=== PATIENT | male | born 1950 | race Caucasian/White ===

== ENCOUNTER 2022-11-01 08:57 | Outpatient (CLI) | payer MEDICARE, SELFPAY ==
[2022-11-01 12:13] LABS: Basophils Absolute Auto 0.1 K/mm3 (0.0-0.1); Eosinophils Absolute Auto 0.2 K/mm3 (0-0.3); Eosinophils Percent Auto 3.4 % (0-4.4); Hemoglobin 13.9 g/dL (14.0-18.0); Immature Granulocyte Absolute 0.01 K/mm3 (0.00-0.031); Immature Granulocyte Percent A 0.2 % (0-0.5); Lymphocytes Absolute Auto 2.11 K/mm3 (0.9-3.2); Lymphocytes Percent Auto 42.1 % (18.3-44.2); Mean Corpuscular HGB Conc 31.6 g/dl (32-36); Mean Corpuscular Hemoglobin 28.2 pg (26-34); Mean Corpuscular Volume 89.2 fl (80-100); Mean Platelet Volume 11.8 fl (7.4-10.4); Monocytes Absolute Auto 0.4 K/mm3 (0.1-0.6); Monocytes Percent Auto 8.2 % (2.6-8.5); Neutrophils Absolute Auto 2.3 K/mm3 (1.3-6.7); Neutrophils Percent Auto 45.1 % (45.5-73.1); Platelet Count Result 300 k/mm3 (150-375); Red Blood Count 4.93 M/mm3 (4.6-6.20); Red Cell Distribution Width 13.9 % (11.5-14.5)
[2022-11-01 13:16] LABS: Alanine Aminotransferase 32 U/L (6-50); Albumin Level 4.8 g/dL (3.5-5.1); Alkaline Phosphatase 67 U/L (38-126); Anion Gap 13 mmol/L (8-16); Aspartate Amino Transferase 34 U/L (17-59); Bilirubin,Total 0.5 mg/dL (0.2-1.3); Blood Urea Nitrogen 18 mg/dL (9-20); Calcium 9.7 mg/dL (8.4-10.2); Carbon Dioxide 24 mmol/L (22-30); Chloride 101 mmol/L (98-107); Cholesterol 146 mg/dL (0-200); Estimated Glomerular Filt Rate > 60; Glucose 112 mg/dL (65-110); HDL Direct 55 mg/dL; Potassium 4.6 mmol/L (3.4-5.0); Sodium 138 mmol/L (137-145); Triglycerides 132 mg/dL (<150)
[2022-11-01 13:31] LABS: LDL Cholesterol Direct 67 mg/dL
[2022-11-01 13:34] LABS: Hemoglobin A1C 6.7 % (<5.7)
[2022-11-01 13:36] LABS: Hepatitis C Virus Antibody Negative (Negative)
[2022-11-01 13:43] LABS: Prostate Specific Antigen 1.7 ng/mL (< OR = 4.0)
== END 2022-11-01 08:58 | disposition home or self-care (01) ==
LOC: ANHGOSHLAB 08:59
PROVIDERS: PCP Emergency Medicine; Visit Provider Physician Assistant
DX: E11.9 Type 2 diabetes mellitus without complications (principal); Z79.899 Other long term (current) drug therapy; Z86.73 Personal history of transient ischemic attack (TIA), and cerebral infarction without residual deficits; Z12.5 Encounter for screening for malignant neoplasm of prostate; Z11.59 Encounter for screening for other viral diseases
CPT/HCPCS: 36415; 80053; 80061; 83036; 84153; 84443; 85025; 86803; G0103

== ENCOUNTER 2022-11-04 08:29 | Outpatient (NON) | payer MEDICARE, SELFPAY ==
[2022-11-08 05:02] LABS: Microalbumin, Urine 6.3 mcg/min (<20)
== END 2022-11-04 08:30 | disposition home or self-care (01) ==
LOC: ANHGOSHLAB 08:32
PROVIDERS: PCP Emergency Medicine; Visit Provider Physician Assistant
DX: E11.9 Type 2 diabetes mellitus without complications (principal); Z79.899 Other long term (current) drug therapy; Z12.5 Encounter for screening for malignant neoplasm of prostate; Z11.59 Encounter for screening for other viral diseases; Z86.73 Personal history of transient ischemic attack (TIA), and cerebral infarction without residual deficits
CPT/HCPCS: 82043

== ENCOUNTER 2024-09-24 09:19 | Outpatient (CLI) | payer MEDICARE, SELFPAY ==
--- OUTSIDE RECORDS SUMMARY | 2024-09-25 11:28 | XMS_ITS | Encounter Summary ---
Author Organization [facility] Address [address] [place] [address] Care Team Providers Care Wastewater Treatment Plant Chemist Name Role Phone America Marcum COURT DEPUTY Primary Care Provider [phone] Encounter Details Date Type Department Care Team (Late st Contact Info) Description 10/15/2023 Telephone [facility] Internal Medicine [address] [address] America Marcum NP [address] [address] Social History Tobacco Use Types Packs/Day Years Used Date Smoking Tobacco: Former Cigarettes 1 10 1 973 - 1982 Smokeless Tobacco: Never Alcohol Use Standard Drinks/Week Comments Yes 0 (1 standard drink = 0.6 oz pur e alcohol) 2-4 drinks weeklhy Sex and Gender Information Value Date Recorded Sex Assigned at Not on file Legal Sex Male 8:09 PM EDT Gender Identity Not on file Sexual Orientation Not on file documented as of this encounter Plan of Treatment Not on file documented as of this encounter Visit Diagnoses Not on filedocumented in this encounter Care Teams Wastewater Treatment Plant Chemist Relationship Specialty Start Date End Date America Marcum NP [address] [address] PCP - General Internal Medicine 08/20/22 documented as of this encounter
--- OUTSIDE RECORDS SUMMARY | 2024-09-25 11:28 | XMS_ITS | Encounter Summary ---
Author Organization [facility] Address [address] [place] [address] Care Team Providers Care Switchboard Installer Name Role Phone Linh Cope Primary Care Provider America Lucia NP Primary Care Provider Reason for Visit * Reason Comments Med Refill Encounter Details Date Type Department Care Team (Late st Contact Info) Description 01/24/2022 Refill [facility] Cardiology - [place] [address] [place] [address], [address] [place] [address] Niecy Cramer MD [address] [place], [place] [id number] Social History Tobacco Use Types Packs/Day Years Used Date Smoking Tobacco: Former Cigarettes 1 10 1 3 1982 Smokeless Tobacco: Never Alcohol Use Standard Drinks/Week Comments Yes 7 (1 standard drink = 0.6 oz pur e alcohol) Sex and Gender Information Value Date Recorded Sex Assigned at Not on file Legal Sex Male 8:09 PM EDT Gender Identity Not on file Sexual Orientation Not on file documented as of this encounter Plan of Treatment Not on file documented as of this encounter Visit Diagnoses Not on filedocumented in this encounter Care Teams Switchboard Installer Relationship Specialty Start Date End Date Linh Cope PA PCP - General 09/11/21 08/19/22 America Marcum NP [address] [facility] [place], [place] [id number] PCP - General Internal Medicine 08/20/22 documented as of this encounter
--- OUTSIDE RECORDS SUMMARY | 2024-09-25 11:28 | XMS_ITS | Clinical Summary ---
Author Organization [facility] [employer] Address [address] [place] [address] Care Team Providers Care Community Development Worker Name Role Phone Unavailable Primary Care Provider Unavailabl e Source Comments [facility] [employer]non-owned Affiliates and Associated Physician Practices is amultiple site organization consisting of ambulatory clinics and hospital sitesin [place], [place], [place] and [place]. This disclosure is being madepursuant to the Care Everywhere program and may not contain all information available regarding this patient. Last updated 18.[facility] [employer] Allergies No known active allergies Medications * Be aware that medications may not be up to date on this document. Alwaysverify current medications with the patient. Fenofibrate 50 MG Take by mouth. 02/06/2017 Active empagliflozin (JARDIANCE) 10 MG tablet Take by mouth. 02/06/2017 Active rosuvastatin (CRESTOR) 5 MG tablet Take by mouth. 02/06/2017 Active metFORMIN (GLUCOPHAGE) 500 MG tablet Take by mouth. 02/06/2017 Active Immunizations Immunization Administration Dates Next Due INFLUENZA VACCINE, HIGH-DOSE , QUADR. 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 Gender Identity Not on file Sexual Orientation Not on file Last Filed Vital Signs Vital Sign Reading Time Taken Comments Blood Pressure 135/85 02/06/2017 8:12 AM CDT Pulse 57 02/06/2017 8:12 AM CDT Temperature - - Respiratory Rate - - Oxygen Saturation - - Inhaled Oxygen Concentration - - Weight 98 kg (216 lb) 02/06/2017 8:12 AM CDT Height 188 cm (6' 2 ) 02/06/2017 8:12 AM CDT Body Mass Index 27.73 02/06/2017 8:12 AM CDT Plan of Treatment Health Maintenance Due Date Last Done Comments COLOGUARD (AGES 45-75) - COL ON CA SCREENING 1949 COLON MONITORING 1949 COLONOSCOPY - COLON CA SCREENING 1949 CT COLONOGRAPHY - COLON CA SCREENING 1949 Colorectal Cancer Screening 1949 FIT - COLON CA SCREENING 1949 FLEX SIG - COLON CA SCREENING 1949 HEPATITIS C SCREENING 08/02/1967 DTAP/TDAP/TD VACCINES (1 - Tdap) 1968 PNEUMOCOCCAL VACCINE 50+ (1 of 1 - PCV) 08/07/1999 ZOSTER VACCINE (1 of 2) 08/07/1999 COVID-19 VACCINE (1 - 2023-2 5 season) 2024 DEPRESSION SCREENING 05/26/2024 Respiratory Syncytial Virus (RSV) Vaccine Pt: or over 60 yrs (1 - 1-dose 75+ series) 2024 INFLUENZA VACCINE (Season Ended) 2025 01/24/2020, 02/26/2019 HEPATITIS B VACCINE Aged Out No longe r eligible based on patient's age to complete this topic HIB VACCINE Aged Out No longer eligi ble based on patient's age to complete this topic HPV VACCINE Aged Out No longer eligi ble based on patient's age to complete this topic MENINGOCOCCAL (Group B) VACCINE SHARED DECISION-MAKING Aged Out No longer eligible based on patient's age to complete this topic MENINGOCOCCAL GROUPS A/C/Y/W VACCINE Aged Out No longer eligible b ased on patient's age to complete this topic Insurance MEDICARE
--- OUTSIDE RECORDS SUMMARY | 2024-09-25 11:28 | XMS_ITS | Encounter Summary ---
Author Organization [facility] Address [address] [place] [address] Care Team Providers Care Community Relations Rep Name Role Phone Linh Cope Primary Care Provider America Lucia NP Primary Care Provider [phone] Encounter Details Date Type Department Care Team (Late st Contact Info) Description 05/09/2022 Orders Only [facility] Primary Care - [address], [address] [place] [address] Kathryn Orozco MA Social History Tobacco Use Types Packs/Day Years Used Date Smoking Tobacco: Former Cigarettes 1 10 1982 Smokeless Tobacco: Never Alcohol Use Standard Drinks/Week Comments Yes 7 (1 standard drink = 0.6 oz pur e alcohol) Sex and Gender Information Value Date Recorded Sex Assigned at Not on file Legal Sex Male 8:09 PM EDT Gender Identity Not on file Sexual Orientation Not on file COVID-19 Exposure Response Date Recorded In the last 10 days, have yo u been in contact with someone who was confirmed or suspected to have Coronavirus/COVID-19? No / Unsure 05/10/2022 9:43 AM EST documented as of this encounter Plan of Treatment Not on file documented as of this encounter Visit Diagnoses Not on filedocumented in this encounter Care Teams Community Relations Rep Relationship Specialty Start Date End Date Linh Cope PA PCP - General 09/11/21 08/19/22 America Marcum NP [address] [place] [address] PCP - General Internal Medicine 08/20/22 documented as of this encounter
--- OUTSIDE RECORDS SUMMARY | 2024-09-25 11:28 | XMS_ITS | Clinical Summary ---
Author Organization [facility] Address [address] [place] [address] Care Team Providers Care Java Sybase Developer Name Role Phone America Marcum NP Primary Care Provider [phone] Allergies Active Allergy Reactions Criticality Noted Date Comments Glimepiride 12/08/2023 Upset stomach Medications ASCORBIC ACID, VITAMIN C, ORAL Daily (once per day) (timed). 9 Active CHOLECALCIFEROL, VITAMIN D3, ORAL Take by mouth in the morning. 8 Active aspirin 81 mg capsule Take 81 mg by mouth in the morning. Active blood sugar diagnostic (Blood Glucose Test) stripIndications:Hy perlipidemia associated with type 2 diabetes mellitus,Diabetes mellitus type II, non insulin dependent (HCC) Used to check glucose on blood 2 times a day. E11.69, E78.5. 200 strip 1 3 Active rosuvastatin (Crestor) 20 mg tablet Take 1 tablet (20 mg) by mouth at bedtime. 90 tablet 3 3 Active metFORMIN (Glucophage) 1,000 mg tabletIndications:T ype 2 diabetes mellitus with other circulatory complication, without long-term current use of insulin Take 1 tablet (1,000 mg) by mouth in the morning and at bedtime. 180 tablet 3 3 Active fenofibrate (Triglide) 160 mg tabletIndications:H yperlipidemia, unspecified hyperlipidemia type Take 1 tablet (160 mg) by mouth 1 (one) time each day. 90 tablet 3 3 Active empagliflozin (Jardiance) 25 mgIndications:Type 2 diabetes mellitus with other circulatory complication, without long-term current use of insulin Take 1 tablet (25 mg) by mouth 1 (one) time each day. 90 tablet 3 4 Active zolpidem (Ambien) 10 mg tablet Take 1 tablet (10 mg) by mouth if needed at bedtime for sleep. 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 HTN (hypertension), benign 03/05/2017 Hyperlipidemia associated with type 2 diabetes m ellitus 03/05/2017 Diabetes mellitus type II, non insulin dependent 03/05/2017 Dizziness 03/05/2017 Atypical chest pain 03/05/2017 AR (myocardial infarction) 02/19/2004 Overview (11/30/2021): resolved Coronary artery disease invo lving [place] coronary artery of [place] heart without angina pectoris 05/26/2003 Overview (06/20/2022): s/p AWMI s/p PCI/PIERRE x 2 LAD Encounters Date Type Department Care Team Description 09/10/2024 Ancillary Procedure [facility] Cardiology Device Clinic - [address] [address] Stephanie Villalta MD Presence of other cardiac implants and grafts; Cerebral infarction, unspecified 08/10/2024 Ancillary Procedure [facility] - [address] [address] Stephanie Villalta MD Presence of other cardiac implants and grafts; Cerebral infarction, unspecified (HCC) 07/15/2024 Telephone [facility] Internal Medicine - [address] [address] America Marcum NP New Med Request 07/10/2024 Ancillary Procedure [facility] Device [facility] - [address], [address] [place] [address] Stephanie Villalta MD Presence of other cardiac implants and grafts; Cerebral infarction, unspecified (HCC) from Last 3 Months Family History Medical History Relation Name Comments Blindness Child old age Father Cervical cancer Mother No Known Problems Sister 1 No Known Problems Sister 2 Relation Name Status Comments Child Alive Father (Age unknown) cause of : old age Mother (Age unknown) cause of : cervical cancer Sister 1 Alive Sister 2 Alive Social History Tobacco Use Types Packs/Day Years Used Date Smoking Tobacco: Former Cigarettes 1 10 1982 Smokeless Tobacco: Never Tobacco Cessation:Counseling Given: Not Answered Alcohol Use Standard Drinks/Week Comments Yes 0 (1 standard drink = 0.6 oz pur e alcohol) 2-4 drinks weeklhy PHQ-2 Answer Date Recorded Patient Health Questionnaire-2 Score 0 06/04/2024 Sex and Gender Information Value Date Recorded Sex Assigned at Not on file Legal Sex Male 8:09 PM EDT Gender Identity Not on file Sexual Orientation Not on file Last Filed Vital Signs Vital Sign Reading Time Taken Comments Blood Pressure 132/76 06/04/2024 1:54 PM EST Pulse 63 06/04/2024 1:54 PM EST Temperature 36.7 C (98 F) 06/04/2024 1:54 PM EST Respiratory Rate 12 02/24/2023 8:17 AM EDT Oxygen Saturation 97% 06/04/2024 1:54 PM EST Inhaled Oxygen Concentration - - Weight 93.4 kg (206 lb) 06/04/2024 1:54 PM EST Height 188 cm (6' 2.02 ) 06/04/2024 1:54 PM EST Body Mass Index 26.44 06/04/2024 1:54 PM EST Plan of Treatment Health Maintenance Due Date Last Done Comments CT Colonography 1949 FIT-DNA 1949 FIT 1950 FOBT 1950 Medicare Annual Wellness (AWV) 1950 Sigmoidoscopy 1949 Diabetes: Retinopathy Screening 08/07/1959 Hepatitis A Vaccines (1 of 2 - Risk 2-dose series) 1968 Hepatitis B Vaccines (1 of 3 - Risk 3-dose series) 2009 Abdominal Aortic Aneurysm (AAA) Screening 2014 Pneumococcal Vaccine: 65+ Years (2 of 2 - PPSV23) 05/13/2018 03/18/2018 COVID-19 Vaccine (4 - season) 2024 05/05/2021, 07/27/2020, 06/27/2020 Diabetes: Hemoglobin A1C 03/09/2024 024, 07/08/2023, 03/13/2023, Additional history exists DTaP/Tdap/Td Vaccines (2 - Td or Tdap) 10/30/2025 10/31/2015, 01/01/2008 Colonoscopy 03/22/2034 03/22/2024 Colorectal Cancer Screening 03/22/2034 Zoster Vaccines Completed 04/07/2020, 01/24/2020 Hepatitis C Screening Completed 04/03/2021, 020 Influenza Vaccine Completed 02/08/2024, , 03/16/2022, Additional history exists HIB Vaccines Aged Out No longer eligi ble based on patient's age to complete this topic HPV Vaccines Aged Out No longer eligi ble based on patient's age to complete this topic IPV Vaccines Aged Out No longer eligi ble based on patient's age to complete this topic Meningococcal B Vaccine Aged Out No l onger eligible based on patient's age to complete this topic Meningococcal Vaccine Aged Out No kylie shanice eligible based on patient's age to complete this topic Rotavirus Vaccines Aged Out No longer eligible based on patient's age to complete this topic Medical Devices Implanted Type Area Account Manager Education Device Identifier Shelf Expiration Date Model / Serial / Lot Dental Dental Right: Mouth Stent Stent Left: Heart Reveal 2 Linq Loop - [id number] - [id number] Implanted:Qty : 1 on 02/24/2023 by Stephanie Villalta MD at [facility] Left: Chest Wall [employer] CARDIAC RHYTHM MANAGEMENT [id number] 04/18/2024 [id number] / [id number] / [id number] Procedures Procedure Name Priority Date/Time Associated Diagnosis Comments CARDIAC DEVICE CHECK - SCHEDULED - LOOP RECORDER (ILR) 09/10/2024 12:00 AM EDT Presence of other cardiac implants and grafts Cerebral infarction, unspecified CARDIAC DEVICE CHECK - SCHEDULED - LOOP RECORDER (ILR) 08/10/2024 12:00 AM EDT Presence of other cardiac implants and grafts Cerebral infarction, unspecified (HCC) CARDIAC DEVICE CHECK - SCHEDULED - LOOP RECORDER (ILR) 07/10/2024 12:00 AM EST Presence of other cardiac implants and grafts Cerebral infarction, unspecified (HCC) HEMOGLOBIN A1C Routine 12/08/2023 9:53 AM EDT HTN (hypertension), benign Hyperlipidemia associated with type 2 diabetes mellitus (HCC) HX HEPATITIS C ANTIBODY Routine 04/03/2021 1:19 AM EST from Last 3 Months or Most Recently Relevant to Health Maintenance Results * Scheduled Remote Loop Recorder (ILR) (09/10/2024 12:00 AM EDT) Only the most recent of3 resultswithin the time period is included. Cardiac Device Summary Routine Remote ILR Summary Report (Cryptogenic Stroke) Current ECG: Sinus rhythm ~75 bpm Detections: (0) PVC [place]: 0.6% Diagnostic data otherwise within normal limits. Normally functioning ILR. Reviewed by [facility] [employer] Cardiac Device Type LOOP RECORDER (ILR) [facility] [employer] Cardiac Device Account Manager Education MDT [facility] [employer] Cardiac Device Alert Rank [facility] Anatomical Region Laterality Modality Other 09/10/2024 Narrative 09/17/2024 3:25 PM EDT Routine Remote ILR Summary Report (Cryptogenic Stroke) Current ECG: Sinus rhythm ~75 bpm Detections: (0) PVC [place]: 0.6% Diagnostic data otherwise within normal limits. Normally functioning ILR. Reviewed by [facility] Current Outpatient Medications: ASCORBIC ACID, VITAMIN C, ORAL, Daily (once per day) (timed)., Disp: , Rfl: aspirin 81 mg capsule, Take 81 mg by mouth in the morning., Disp: , Rfl: blood sugar diagnostic (Blood Glucose Test) strip, Used to check glucose on blood 2 times a day. E11.69, E78.5., Disp: 200 strip, Rfl: 1 CHOLECALCIFEROL, VITAMIN D3, ORAL, Take by mouth in the morning., Disp: , Rfl: empagliflozin (Jardiance) 25 mg, Take 1 tablet (25 mg) by mouth 1 (one) time each day., Disp: 90 tablet, Rfl: 3 fenofibrate (Triglide) 160 mg tablet, Take 1 tablet (160 mg) by mouth 1 (one) time each day., Disp: 90 tablet, Rfl: 3 metFORMIN (Glucophage) 1,000 mg tablet, Take 1 tablet (1,000 mg) by mouth in the morning and at bedtime., Disp: 180 tablet, Rfl: 3 rosuvastatin (Crestor) 20 mg tablet, Take 1 tablet (20 mg) by mouth at bedtime., Disp: 90 tablet, Rfl: 3 zolpidem (Ambien) 10 mg tablet, Take 1 tablet (10 mg) by mouth if needed at bedtime for sleep., Disp: 90 tablet, Rfl: 1 us Stephanie Villalta MD CV IMPLANTABLE CARDIAC STEFF CE PROCEDURES Final Result * (ABNORMAL) Hemoglobin A1c (12/08/2023 9:53 AM EDT) Hemoglobin A1C 8.9(H) <=5.6 % 12/08/2023 2:29 PM [address]T [facility] Estimated Average Glucose 208.73 12/08/2023 2:[address] [facility] Blood Venous blood specimen / Unknown Venipuncture / Unknown 12/08/2023 9:53 AM EDT 12/08/2023 9:53 AM EDT Narrative [facility] - 12/08/2023 2:29 PM EDT Reference Range - Suggested Diagnosis <= 5.6% - Non-Diabetic 5.7 - 6.4% - Pre-Diabetic >= 6.5% - Diabetic us America Marcum NP LAB BLOOD ORDERABLES Final Result [facility] [address] [place] [address], * HX Hepatitis C Antibody (04/03/2021 1:19 AM EST) HX HEPATITIS C ANTIBODY NUMERIC <0.02 0.00 - 0.80 ratio [facility] HX HEPATITIS C ANTIBODY NUMERIC Hepatitis C Virus Antibody Reference Indications: Less than 0.8 ....... Negative 0.8 - 0.9 ....... Indeterminate Greater than 0.9 ....... Positive In order to reduce the incidence of a false positive result, the CDC recommends that all s/co ratios between 1.0 and 10.9 be confirmed with additional RIBA or PCR testing. [facility] HX HEPATITIS C ANTIBODY Negative Negative [facility] Blood 04/03/2021 1:19 AM EST [facility] LAB BLOOD ORDERABLES Final Result Performing Organization Address City/State/[facility] Co de Phone Number [facility] from Last 3 Months or Most Recently Relevant to Health Maintenance Insurance MEDICARE [facility] MEDICARE SUPPLEMENT Care Teams Java Sybase Developer Relationship Specialty Start Date End Date America Marcum NP [address] [place] [address] PCP - General Internal Medicine 08/20/22
--- OUTSIDE RECORDS SUMMARY | 2024-09-25 11:28 | XMS_ITS | Data Portability ---
Author Organization [facility] are, Main Office Address [address] [place] [address] Care Team Providers Care Senior Science Consultant Name Role Phone PEMBERTONASHELY Primary Care Provider Assessment No assessment recorded. Plan of Treatment Reminders Order Date Submit Date Provider Last Modified By Organization Details Last Modified Time Details Appointments None recorded. Lab None recorded. Referral None recorded. Procedures None recorded. Surgeries None recorded. Imaging [place], modified barium swallow study 2024 025 amorales2 65 [facility] ([facility]), [address], [address], [place], [address], 5 08:40:29 XR, esophagram 2024 025 amorales2 65 [facility] ([facility]), [address], [address], [place], [address], 5 08:40:29 Medication Orders None recorded. Patient TargetsNo targets recorded. Patient Instructions Encounter Date Encounter Id Patient Instructions Last Modified By Organization Details Last Modified Time 06/11/2024 [id number] Today's visit included addressing the chronic gastroenterology and hepatology condition(s), reviewing existing medical notes, review and summary of old records, lab tests, and radiology reports, personal review of radiographic imaging, interpreting test results, discussing patient history, providing counseling, ordering additional tests, coordinating care, and completing documentation. High risk diagnosis, management, treatment and prognosis. The above stated information was used to determine the level of medical decision making. Total time spent on this encounter was greater than 60 minutes. It is in my opinion that this visit was medically necessary. Disclaimer: Note is dictated utilizing [employer] naturally speaking voice recognition software. Unfortunately this leads to occasional typographical errors. I apologize in advance if the situation occurs. Please contact our office with any questions. melissa Not available 06/11/2024 08:41:59 Reason for Referral None Reported. Medical Equipment None Reported. Allergies No known drug allergies Medications Name Sig Start Date Stop Date Status Note LastModified by Organization Details LastModified Time metformin 500 mg tablet TAKE 1 TABLET BY MOUTH TWICE DAILY 06/11 completed Not Available Not Available Not Available ketoconazol e 2 % shampoo APPLY TO SCALP AND LEAVE FOR 5 MINUTES THEN RINSE 3 TIMES A WEEK active Not Available Not Available No t Available tizanidine 4 mg tablet TAKE 1 TABLET BY MOUTH AT BEDTIME NEEDED FOR MUSCLE SPASMS 06/11 completed Not Available Not Available Not Available metformin 1,000 mg tablet TAKE 1 TABLET BY MOUTH TWICE DAILY active Not Available Not Available No t Available fluoxetine 10 mg capsule TAKE 1 CAPSULE BY MOUTH EVERY DAY 06/11 completed Not Available Not Available Not Available hydrocortis one 2.5 % topical cream APPLY TO THE AFFECTED AREA ON FACE AND EARS TWICE DAILY FOR 7 DAYS 06/11 completed Not Available Not Available Not Available zolpidem 10 mg tablet TAKE 1 TABLET BY MOUTH EVERY DAY AT BEDTIME active Not Available Not Available No t Available naproxen 500 mg tablet TAKE 1 TABLET BY MOUTH TWICE DAILY NEEDED FOR PAIN active Not Available Not Available No t Available Jardiance 10 mg tablet Take 1 tablet every day by oral route. active Not Available Not Available No t Available Voquezna 10 mg tablet active Not Available Not Available No t Available Vitals Date Recorded Body weight Body mass index (BMI) Body height Oxygen saturation Oxygen saturation in Arterial blood by Pulse oximetry Heart rate Systolic blood pressure Diastolic blood pressure Provider Name and Address Organization Details Last Updated DateTime 5 83860.4 4 g 26.3 kg/m2 187.96 cm 95 % 95 % 59 /min 125 mm[Hg] 84 mm[Hg] Diana Lee [facility] 5 08:17:11 Social History Question Answer Notes LastModified by Organizat ion Details LastModified Time Tobacco Smoking Status Former Smoker Diana Lee [facility] 06/11/2024 08:15:01 What Is Your Level Of Alcohol Consumption? Occasional Information not available 06/11/2024 How Many Times Per Week Do You Consume Alcohol? 1-2 Times Per Week Information not available 06/11/2024 What Is Your Level Of Caffeine Consumption? Occasional 1 Cup Of Coffee Daily Information not available 06/11/2024 Are You Currently Employed? No Information not available 06/11/2024 How Many Times Per Week Do You Exercise? 3-4 Times Per Week Information not available 06/11/2024 Do You Use Any Illicit Or Recreational Drugs? No Information not available 06/11/2024 How Many Years Have You Smoked Tobacco? 10 Quit 40 Years Ago Information not available 06/11/2024 Sex: Unknown Functional Status Question Answer Note LastModified by Organizat ion Details LastModified Time What is your exercise level? Occasional Information not available 06/11/2024 Mental Status None recorded. Family History Relationship Description Onset Age of this Age Resolved Age Notes LastModified by Organization Details LastModified Time Mother Malignant neoplasm of ovary Not available 2024 08:14:16 Medical History No medical history recorded. Past Encounters Encounter ID Performer Location Encounter Start Date Encounter Closed Date Diagnosis/Indication Diagnosis SNOMED-CT Code Diagnosis ICD10 Code Diagnosis Note [id number] JASWINDER ENGLAND MD Main Office [address] [facility] [facility] [place] [address] 06/11/2024 08:07:17 06/11/2024 08:40:29 Dysphagia 75540402 R13.10 History of uncontroll ed acid reflux and TIA/CVA (2022)EGD 2023 (Dr. Miller) - no records available PlanModifi ed barium swallow with esophagram I have requested records from Dr. Miller for reveiw Clearing t hroat - hawking 809907786 R05.9 Likely multifacto rial i.e. acid, vocal cord polyp, ?oropharyn geal dysphagia with microaspir ation History of polyp of colon 635269265 Z86.0100 Last colonoscop y 2023 (Dr. Miller)I have requested records for review at today's visit Steatotic liver disease 455848450 K76.0 Steatotic Liver Disease (SLD): Metabolic dysfunctio n associated with the steatotic liver disease (MASLD, or MASH, formerly current non-alcoho lic associated steatohepa titis, MCNAMARA, or fatty liver disease). Liver enzymes: None available Imaging: None available Metabolic risk factors: HTN, HPL, DM Lifestyle & Diet:Lose 7-10% body weight to reduce liver fat.Eat more fruits, vegetables , whole grains; less fats and sugars.Con sume lean proteins.E ngage in 150 mins of moderate or 75 mins of vigorous exercise weekly.Min imize/avoi d alcohol for NAFLD.Avoi d certain OTC painkiller s and medication s. Manage Associated Conditions :Control diabetes and blood lipids.Rebecca ntain healthy blood pressure. Medication s (for advanced MASLD or MASH):Kasey min E for non-diabet ic MASH patients.P ioglitazon e 30-45 mg PO daily, especially for diabetics with MASH.Lirag lutide 1.8 mg s.c. day, especially for diabetics with MASLD or MASH w/o cirrhosisS emaglutide 0.4 mg sc /day or 0.25-2.4 s.c./wk, especially for diabetics with MASLD or MASH w/o cirrhosisO ther treatments being researched in phase 3 clinical trials. Monitoring :Regular check-ups to track disease status.Scr een for liver cancer if cirrhosis is present. Patient Guidance:E ducated on disease severity and progressio n.Emphasiz ed medication , diet, and exercise adherence. Tests:Che k liver functions (ALT, AST, ALP, bilirubin) .FIB-4 panel with reflex to ELF score Imaging:Ul trasound for diagnosis. FibroScan/ MRE to evaluate liver stiffness and fat severity. Polyp of vocal cord 9078 005 J38.1 History of vocal cord polyp, followed by ENT Laryngopha ryngeal reflux 641373482 K21.9 Chronic throat clearing, voice hoarseness and cough associated with globus sensationD enies heartburn or acid regurgitat ion Not on PPI or H2 RB therapy PlanDiscus sed trial of Voquenza 10 mg once daily samples were providedDi scussed trial of reflux Gourmet samples were providedPr oceed with esophagram to evaluate for refluxI have requested records from prior GI/Dr. Miller for review Health Concerns Section Related Observation LastModified by Organization Detai ls LastModified Time None Recorded Concern Status LastModified by Organization Details LastModified Time None Recorded Advance Directives Directive None Recorded Payers Encounter Date Sequence Insurance Name Policy Number Policy Eller Covered Member ID Eller Member ID Guarantor Name 06/11/2024 1 [place] Julio Sommer [id number] Julio Sommer 06/11/2024 2 [facility] (MEDICARE SUPPLEMENT) Julio Sommer [id number] Julio Sommer Notes Date Note Type Note Provider Name and Address Organization Details Recorded Time 06/11/2024 text/html Patient: Julio MaganaCP: America Trixie NPPrior GI Provider: Dr. Demetria Parekh for Visit: Dysphagia Office Visit (06/11/2024):Julio Sommer is a 73-year-old male with past medical history significant for hypertension, hyperlipidemia, type 2 diabetes, CAD status post PCI x 2 (2003), TIA (2022), obstructive sleep apnea intolerant to CPAP., GERD with esophagitis, gastritis, vocal cord polyp and fatty liver presenting for evaluation of dysphonia, throat clearing and dysphagia. The patient mentions changes in voice started approximately 2 yrs ago. He was seen by several ENT's locally and referred to ENT in [place] but patient did not follow up. He mentions having an EGD and colonoscopy in 2023 (Dr. Miller) - no records available. Patient does not recall results. He denies heartburn or acid regurgitation. He was prescribed PPI in the past but didn't feel it made a difference. He mentions difficulties swallowing with sensation of food getting stuck in throat area. It feels like he has a blockage in his throat and he can't even swallow his saliva at times. He denies abdominal pain or melena. JASWINDER ENGLAND MD [address] [facility], [place], [address], Formerly [facility] 06/11/2024 08:42:38
--- OUTSIDE RECORDS SUMMARY | 2024-09-25 11:28 | XMS_ITS | Encounter Summary ---
Author Organization [facility] Syste m Address [address] [place] [address] Care Team Providers Care Machine Filler Name Role Phone America Marcum MOLECULAR BIOLOGY PROFESSOR Primary Care Provider Reason for Visit * Reason Onset Date Comments Med Refill 10/21/2023 Encounter Details Date Type Department Care Team (Late st Contact Info) Description 10/21/2023 Telephone [facility] Internal Medicine - [address] [address] America Marcum NP [address] [place] [address] Med Refill Social History Tobacco Use Types Packs/Day Years [...] on file documented as of this encounter Miscellaneous Notes * Telephone Encounter - Mariza Maldonado - 10/21/2023 1:19 PM EDT Who called if not the patient? Patient Relationship of caller if not the patient? Best contact number(s)? [phone] Name of the medication and dosage if known:? zolpidem (Ambien) 10 mg tablet Are they out of the medication - yes/no?? Y Pharmacy name and phone number - if we are unable to select it within the telephone encounter from a list or if it is a new pharmacy? [facility] [place] [phone] Transfer Successful? Y or N N/A *Details to clarify the request:? documented in this encounter Plan of Treatment Not on file documented as of this encounter Visit Diagnoses Not on filedocumented in this encounter Care Teams Machine Filler Relationship Specialty Start Date End Date America Marcum NP [address] [place] [address] PCP - General Internal Medicine 08/20/22 documented as of this encounter
--- OUTSIDE RECORDS SUMMARY | 2024-09-25 11:28 | XMS_ITS | Encounter Summary ---
Author Organization [facility] Syste m Address [address] [place] [address] Care Team Providers Care Sourcing Internship Name Role Phone Linh Cope Primary Care Provider America Lucia NP Primary Care Provider Reason for Visit * Reason Comments Med Refill Encounter Details Date Type Department Care Team (Late st Contact Info) Description 12/20/[address] [address] Linh Cope PA Social History Tobacco Use Types Packs/Day Years Used Date Smoking Tobacco: Former Cigarettes 1 10 3 1982 Smokeless Tobacco: Never Alcohol Use Standard Drinks/Week Comments Yes 7 (1 standard drink = 0.6 oz pur e alcohol) Sex and Gender Information Value Date Recorded Sex Assigned at Not on file Legal Sex Male 8:09 PM EDT Gender Identity Not on file Sexual Orientation Not on file COVID-19 Exposure Response Date Recorded In the last month, have you been in contact with someone who was confirmed or suspected to have Coronavirus / COVID-19? No / Unsure 12/03/2021 10:56 AM EDT documented as of this encounter Plan of Treatment Not on file documented as of this encounter Visit Diagnoses Not on filedocumented in this encounter Care Teams Sourcing Internship Relationship Specialty Start Date End Date Linh Cope PA PCP - General 09/11/21 08/19/22 America Marcum NP [address] [place] [address] PCP - General Internal Medicine 08/20/22 documented as of this encounter
--- OUTSIDE RECORDS SUMMARY | 2024-09-25 11:29 | XMS_ITS | Encounter Summary ---
Author Organization [facility] Syste m Address [address] [place] [address] Care Team Providers Care Retort Furnace Helper Name Role Phone America Marcum LANDSCAPER HELPER Primary Care Provider Reason for Visit * Reason Onset Date Comments New Med Request 07/15/2024 Encounter Details Date Type Department Care Team (Late st Contact Info) Description 07/15/2024 Telephone [facility] Internal Medicine [address] [address] America Marcum NP [address] [place] [address] New Med Request Social History Tobacco Use Types Packs/Day Years [...] encounter Miscellaneous Notes * Telephone Encounter - Fela Cerna - 07/16/2024 3:09 PM EST Called pt and notified them * Telephone Encounter - Fela Cerna - 07/16/2024 8:44 AM EST Pt came in for her appt and she mentioned about her wanting a fill for voquezna. Pt said they will be moving on Friday07/18/24 * Telephone Encounter - Jc Mercado - 07/15/2024 11:38 AM EST Who is calling: (first, last name) SELF What is the reason for the call: new med Does the pt. need a call back & why? Yes if needed Best Contact Number: Details to clarify the request: Pt was seen by Dr Mo and was provide a sample of voquezna and he wants to know if it would be possible for America to send a prescription for it Live Transfer (Y/N) N documented in this encounter Plan of Treatment Not on file documented as of this encounter Visit Diagnoses Not on filedocumented in this encounter Care Teams Retort Furnace Helper Relationship Specialty Start Date End Date America Marcum NP [address] [place] [address] PCP - General Internal Medicine 08/20/22 documented as of this encounter
--- OUTSIDE RECORDS SUMMARY | 2024-09-25 11:29 | XMS_ITS | Referral Summary ---
Author Organization [facility] [address] Address [address] [place] [address] Care Team Providers Care Clay Stain Mixer Name Role Phone Gino Bar MD Primary Care Provider [phone] Allergies No known active allergies Medications rosuvastatin (CRESTOR) 10 mg tablet Take 5 mg by mouth daily. Active fenofibrate nanocrystallized (TRICOR,TRIGLIDE) 145 mg tablet Take 145 mg by mouth daily. Active empagliflozin (JARDIANCE) 10 mg tabletIndications:typ e 2 diabetes mellitus Take 10 mg by mouth daily. Active metFORMIN (GLUCOPHAGE) 1,000 mg tablet Take 1,000 mg by mouth 2 (two) times a day with meals. Active aspirin 81 mg tablet Take 81 mg by mouth daily. 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 Throat clearing 10/05/2018 Coronary artery disease invo lving [place] coronary artery of [place] heart without angina pectoris 03/05/2017 Atypical chest pain 03/05/2017 HTN (hypertension), benign 03/05/2017 Hyperlipidemia LDL goal <70 03/05/2017 Lightheadedness 03/05/2017 Diabetes mellitus type II, non insulin dependent 03/05/2017 Hyperlipidemia associated with type 2 diabetes m ellitus 03/05/2017 Dizziness 03/05/2017 Social History Tobacco Use Types Packs/Day Years Used Date Smoking Tobacco: Some Days Cigarettes Last attempted to quit: 03/05/1983 Smokeless Tobacco: Never Comments:cigars Alcohol Use Standard Drinks/Week Comments Yes 3 (1 standard drink = 0.6 oz pur e alcohol) Personal Safety Answer Date Recorded Getting School Help Needed Not on file 08/09 Sex and Gender Information Value Date Recorded Sex Assigned at Not on file 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 Gender Identity Not on file Sexual Orientation Not on file Last Filed Vital Signs Vital Sign Reading Time Taken Comments Blood Pressure 135/84 10/05/2018 9:47 AM CDT Pulse 55 10/05/2018 9:47 AM CDT Temperature - - Respiratory Rate - - Oxygen Saturation 96% 10/05/2018 9:47 AM CDT Inhaled Oxygen Concentration - - Weight 99.3 kg (219 lb) 10/05/2018 9:47 AM CDT Height 188 cm (6' 2 ) 03/05/2017 2:16 PM CDT Body Mass Index 28.12 03/05/2017 2:16 PM CDT Plan of Treatment Not on file Insurance [facility] MEDICARE MEDICARE [facility] Care Teams Clay Stain Mixer Relationship Specialty Start Date End Date Gino Bar MD PCP - General Family Medicine 03/05/17
--- OUTSIDE RECORDS SUMMARY | 2024-09-25 11:29 | XMS_ITS | Clinical Summary ---
Author Organization [facility] [address] Address [address] [place] [address] Care Team Providers Care Program Management Specialist Name Role Phone Gino Bar MD Primary Care Provider [phone] Allergies No known active allergies Medications rosuvastatin [...] clearing 10/05/2018 Coronary artery disease invo lving napaim[place] coronary artery of [place] heart without angina pectoris 03/05/2017 Atypical chest pain 03/05/2017 HTN (hypertension), benign 03/05/2017 Hyperlipidemia LDL goal <70 03/05/2017 Lightheadedness 03/05/2017 Diabetes mellitus type II, non insulin dependent 03/05/2017 Hyperlipidemia associated with type 2 diabetes m benitus 03/05/2017 Dizziness 03/05/2017 Surgical History Surgery Date Site/Laterality Comments KNEE SURGERY Knee surgery APPENDECTOMY Appendectomy CORONARY STENT PLACEMENT Coronary Stent Placement CORONARY ANGIOPLASTY APPENDECTOMY Medical History Medical History Date Comments Hypertension Hypertension Hx Other Medical RATNA Hypercholesterolemia High choles terol Diabetes mellitus (HCC) diabetes mellitus Calculus of kidney nephrolithias is Osteoarthritis osteoarthritis Hx Other 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 Chronic coronary artery disease Coronary Artery Disease Myocardial infarction (HCC) 2004 Myoc ardial infarction Diverticulitis Sleep apnea Arthritis Cataracts, bilateral Family History Medical History Relation Name Comments Other Father natural causes; Cause of : natural causes Ovarian cancer Mother Ovarian Cance r; Cause of : Ovarian Cancer Relation Name Status Comments Father (Age 86) Mother (Age 44) Sister 1 Alive Sister 2 Alive Social [...] on file 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
== END 2024-09-24 09:20 | disposition home or self-care (01) ==
PROVIDERS: PCP Nurse Practitioner Family; Visit Provider Otolaryngology
DX: H93.19 Tinnitus, unspecified ear (principal); H90.3 Sensorineural hearing loss, bilateral
CPT/HCPCS: 92557; 92567

== ENCOUNTER 2025-01-12 14:20 | Outpatient (CLI) | payer MEDICARE, SELFPAY ==
--- OUTSIDE RECORDS SUMMARY | 2025-01-12 14:53 | XMS_ITS | Encounter Summary ---
Author Organization [facility] Syste m Address [address] [place] [address] Care Team Providers Care Dray Driver Name Role Phone America Marcum REAL ESTATE INVESTOR Primary Care Provider Encounter Details Date Type Department Care Team (Late st Contact Info) Description 10/15/2023 Telephone [facility] Internal Medicine [address] [address] America Marcum NP [address] [address] Social History Tobacco Use Types Packs/Day Years [...] on filedocumented in this encounter Care Teams Dray Driver Relationship Specialty Start Date End Date America Marcum NP [address] [address] PCP - General Internal Medicine 08/20/22 documented as of this encounter
--- OUTSIDE RECORDS SUMMARY | 2025-01-12 14:53 | XMS_ITS | Encounter Summary ---
Author Organization [facility] Syste m Address [address] [place] [address] Care Team Providers Care Scarf And Anneal Operator Name Role Phone America Marcum GLOBAL SALES MANAGER Primary Care Provider Reason for Visit * Reason Onset Date Comments New Med Request 07/15/2024 Encounter Details Date Type Department Care Team (Late st Contact Info) Description 07/15/2024 Telephone [facility] Internal Medicine [address] [address] America Marcum NP [address] [place] [address] New Med Request Social History Tobacco [...] on filedocumented in this encounter Care Teams Scarf And Anneal Operator Relationship Specialty Start Date End Date America Marcum NP [address] [place] [address] PCP - General Internal Medicine 08/20/22 documented as of this encounter
--- OUTSIDE RECORDS SUMMARY | 2025-01-12 14:53 | XMS_ITS | Encounter Summary ---
Author Organization [facility] Syste m Address [address] [place] [address] Care Team Providers Care Lead Caregiver Name Role Phone Linh Cope Primary Care Provider America Lucia NP Primary Care Provider Reason for Visit * Reason Comments Med Refill Encounter Details Date Type Department Care Team (Late st Contact Info) Description 01/24/2022 Refill [facility] Cardiology - [place] [address] [place] [address], [address] [place] [address] Niecy Cramer MD [address] [place], [place] [id number] Social History Tobacco Use Types Packs/Day Years [...] on filedocumented in this encounter Care Teams Lead Caregiver Relationship Specialty Start Date End Date Linh Cope PA PCP - General 09/11/21 08/19/22 America Marcum NP [address] [facility] [place], [place] [id number] PCP - General Internal Medicine 08/20/22 documented as of this encounter
--- OUTSIDE RECORDS SUMMARY | 2025-01-12 14:53 | XMS_ITS | Clinical Summary ---
Author Organization [facility] Address [address] [facility] [place] [address] Care Team Providers Care Bank Analyst Name Role Phone Unavailable Primary Care Provider Unavailabl e Source Comments [facility],non-owned Affiliates and Associated Physician Practices is amultiple site organization consisting of ambulatory clinics and hospital sitesin [place], [place], [place] and [place]. This disclosure is being madepursuant to the Care Everywhere program and may not contain all information available regarding this patient. 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
--- OUTSIDE RECORDS SUMMARY | 2025-01-12 14:53 | XMS_ITS | Clinical Summary ---
Author Organization [facility] [place] [address] Address [address] [place] [address] Care Team Providers Care Floral Decorator Name Role Phone Gino Bar MD Primary Care Provider [phone] Allergies No known active allergies Medications rosuvastatin (CRESTOR) 10 mg tablet Take 5 mg by mouth daily. Active metFORMIN (GLUCOPHAGE) 1,000 mg tablet Take 1,000 mg by mouth 2 (two) times a day with meals. Active aspirin 81 mg tablet Take 81 mg by mouth daily. Active empagliflozin (JARDIANCE) 25 mg tablet Take 1 tablet (25 mg total) by mouth daily Active fenofibrate (TRIGLIDE) 160 mg tablet Take 1 tablet (160 mg total) by mouth daily Active calcium carbonate-vitamin D3 1,250 mg (500 mg elemental)-400 unit chewable tablet Take 1 tablet by mouth daily Active cholecalciferol 25 mcg (1,000 unit) tablet Take 1 tablet (1,000 Units total) by mouth daily Active magnesium oxide 500 mg capsule Take by mouth Active ascorbic acid (ascorbic acid with gordon hips) 500 mg tablet,chewable Acti ve rivaroxaban (XARELTO) 20 mg tabletIndications :atrial fibrillation Take 1 tablet (20 mg total) by mouth daily with dinner 90 tablet 2 11/03/2024 Active Active Problems Problem Noted Date Diagnosed Date Paroxysmal atrial fibrillation 11/03/2024 Other thrombophilia 11/03/2024 Muscle tension dysphonia 10/05/2018 Throat clearing 10/05/2018 Coronary artery disease invo lving [place] coronary artery of [place] heart without angina pectoris 03/05/2017 Atypical chest pain 03/05/2017 HTN (hypertension), benign 03/05/2017 Hyperlipidemia LDL goal <70 03/05/2017 Lightheadedness 03/05/2017 Diabetes mellitus type II, non insulin dependent 03/05/2017 Hyperlipidemia associated with type 2 diabetes m ellitus 03/05/2017 Dizziness 03/05/2017 Encounters Date Type Department Care Team Description 11/03/2024 11:00 AM CDT Office Visit [facility] Cardiology at [address] [place] [address] Hernandez Hager MD Coronary artery disease involving [place] coronary artery of [place] heart without angina pectoris (Primary Dx); Old myocardial infarction; Other specified postprocedural states; Paroxysmal atrial fibrillation (HCC); Other thrombophilia (HCC) from Last 3 Months Surgical History Surgery Date Site/Laterality Comments KNEE SURGERY Knee surgery APPENDECTOMY Appendectomy CORONARY STENT PLACEMENT Coronary Stent Placement CORONARY ANGIOPLASTY APPENDECTOMY Medical History Medical History Date Comments Hypertension Hypertension Hx Other Medical RATNA Hypercholesterolemia High choles terol Diabetes mellitus (HCC) diabetes mellitus Calculus of kidney nephrolithias is Osteoarthritis osteoarthritis Hx 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 Chronic coronary artery disease Coronary Artery Disease Myocardial infarction (HCC) 2003 Myoc ardial infarction Diverticulitis Sleep apnea Arthritis [...] Years Used Date Smoking Tobacco: Some Days Cigars Smokeless Tobacco: Never Tobacco Cessation:Ready to Q uit: Not Asked; Counseling Given: Not Answered Comments:cigars Alcohol Use Standard Drinks/Week Comments Yes 3 (1 standard drink = 0.6 oz pur e alcohol) Sex and Gender Information Value Date Recorded Sex Assigned at Not on file Legal 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 Gender Identity Not on file Sexual Orientation Not on file Obstetrics History Last Filed Vital Signs Vital Sign Reading Time Taken Comments Blood Pressure 116/74 11/03/2024 10:57 AM CDT Pulse 74 11/03/2024 10:57 AM CDT Temperature - - Respiratory Rate - - Oxygen Saturation 96% 11/03/2024 10:57 AM CDT Inhaled Oxygen Concentration - - Weight 90.7 kg (200 lb) 11/03/2024 10:57 AM CDT Height 188 cm (6' 2) 11/03/2024 10:57 AM CDT Body Mass Index 25.68 11/03/2024 10:57 AM CDT Plan of Treatment Health Maintenance Due Date Last Done Comments Albumin Creatinine Ratio, Urine 1949 Colon Cancer Screening-Colonoscopy 1949 Depression Screening 1949 Fall Risk Assessment 1949 Hemoglobin A1C 1949 Hepatitis C Screening 1949 eGFR 1949 Dilated Eye Exam 1949 Foot Exam 1949 Hepatitis B Screening 08/07/1967 Pneumococcal vaccine 65+ (1 of 2 - PCV) 1968 Abdominal Aortic Aneurysm (A AA) Screen 2014 Well Visit 65+ 2014 Lipid Panel 03/07/2018 03/07/2017 Zoster Vaccine (2 of 2) 03/20/2020 01/24/2020 Covid-19 Vaccine (2 - 2023-2 5 season) 2024 12/07/2021 Influenza Vaccine (#1) 2025 4, 03/07/2021, 01/24/2020, Additional history exists DTaP/Tdap/Td Vaccine (2 - Td or Tdap) 10/30/2025 10/31/2015 Procedures Procedure Name Priority Date/Time Associated Diagnosis Comments ELECTROCARDIOGRAM REPORT Routine 025 7:55 AM CDT Paroxysmal atrial fibrillation (HCC) POCT LIPID PANEL Routine 03/07/2017 4:13 PM CDT Coronary artery disease involving [place] coronary artery of [place] heart without angina pectoris Hyperlipidemia LDL goal <70 from Last 3 Months or Most Recently Relevant to Health Maintenance Results * Electrocardiogram Report (11/03/2024 7:55 AM CDT) us Hernandez Hager MD ECG ORDERABLES Final Re sult * POCT lipid panel (03/07/2017 4:13 PM CDT) Cholesterol, POC 142 mg/dL HDL, POC 54 mg/dL Triglycerides, POC 167 mg/dL LDL Cholesterol POC 55 mg/dL Chol/HDL Ratio, POC 2.7 Non-HDL Cholesterol, POC 89 mg/dL Cholesterol Total, POC 142 mg/dL Blood specimen (specimen) 03/07/2017 4:13 PM CDT Jasmeet Jimenez MD POINT OF CARE TEST ORDERA BLES Final Result from Last 3 Months or Most Recently Relevant to Health Maintenance Insurance [facility] [place] [address] [facility] MEDICARE [facility] Care Teams Floral Decorator Relationship Specialty Start Date End Date Gino Bar MD PCP - General Family Medicine 03/05/17
--- OUTSIDE RECORDS SUMMARY | 2025-01-12 14:53 | XMS_ITS | Encounter Summary ---
Author Organization [facility] Syste m Address [address] [place] [address] Care Team Providers Care Client Service Manager Name Role Phone Linh Cope Primary Care Provider America Lucia NP Primary Care Provider Reason for Visit * Reason Comments Med Refill Encounter Details Date Type Department Care Team (Late st Contact Info) Description 12/20/[address] [address] Linh Cope PA Social History [...] on filedocumented in this encounter Care Teams Client Service Manager Relationship Specialty Start Date End Date Linh Cope PA PCP - General 09/11/21 08/19/22 America Marcum NP [address] [place] [address] PCP - General Internal Medicine 08/20/22 documented as of this encounter
--- OUTSIDE RECORDS SUMMARY | 2025-01-12 14:53 | XMS_ITS | Clinical Summary ---
Author Organization [facility]ste m Address [address] [place] [address] Care Team Providers Care Snuff Grinder Name Role Phone America Marcum NP Primary Care Provider Allergies Active Allergy Reactions Criticality Noted Date [...] bedtime for sleep. 90 tablet 1 5 Active Active Problems Problem Noted Date Diagnosed [...] 03/05/2017 Dizziness 03/05/2017 Atypical chest pain 03/05/2017 NM (myocardial infarction) 02/19/2004 Overview (11/30/2021): resolved Coronary artery disease invo lving [place] coronary artery of [place] heart without angina pectoris 05/26/2003 Overview (06/20/2022): s/p AWMI s/p PCI/PIERRE x 2 LAD Encounters Date Type Department Care Team Description 12/12/2024 Ancillary Procedure [facility] [place] [place] [address] Stephanie Villalta MD Presence of other cardiac implants and grafts; Cerebral infarction, unspecified 11/11/2024 Ancillary Procedure [facility] Device Clinic - [address] [address] Stephanie Villalta MD Presence of other cardiac implants and grafts; Cerebral infarction, unspecified from Last 3 Months Family History Medical [...] 1 973 - 1982 Smokeless Tobacco: Never Tobacco Cessation:Counseling Given: [...] 1:54 PM EST Height 188 cm (6' 2.02) 06/04/2024 1:54 PM EST Body Mass Index 26.44 06/04/2024 1:54 PM EST Plan of Treatment Health Maintenance Due Date Last Done Comments CT Colonography 1949 FIT-DNA 1949 FOBT 1950 Medicare Annual Wellness (AWV) 1949 Sigmoidoscopy 1949 Diabetes: Retinopathy Screening 08/07/1959 Hepatitis A Vaccines (1 of 2 - Risk 2-dose series) 1968 Hepatitis B Vaccines (1 of 3 - Risk 3-dose series) 2009 Abdominal Aortic Aneurysm (AAA) Screening 2014 Pneumococcal Vaccine: 50+ Years (2 of 2 - PPSV23, PCV20, or PCV21) 05/13/2018 03/18/2018 FIT 06/02/2021 06/02/2020 COVID-19 Vaccine ( season) 2024 05/05/2021, 07/27/2020, 06/27/2020 Diabetes: Hemoglobin A1C 06/09/2024 024, 07/08/2023, 03/13/2023, Additional history exists Diabetes: Urine Protein Screening 12/07/2024 12/08/2023, 03/13/2023, 11/03/2022, Additional history exists Influenza Vaccine (#1) 2025 , 02/14/2023, 03/16/2022, Additional history exists Colonoscopy 03/22/2034 03/22/2024, 03/22/2024 Colorectal Cancer Screening 03/22/2034 Zoster Vaccines Completed 04/07/2020, 01/24/2020 Hepatitis C Screening Completed 04/03/2021, 020 HIB Vaccines Aged Out No longer eligi [...] this topic Medical Devices Implanted Type Area Video Editing Intern Device Identifier Shelf Expiration Date Model / Serial / Lot Dental Dental Right: Mouth Stent Stent Left: Heart Reveal 2 Linq Loop - [id number] - [id number] Implanted:Qty : 1 on 02/24/2023 by Stephanie Villalta MD at [facility] Left: Chest Wall [employer] CARDIAC RHYTHM MANAGEMENT [id number] 04/18/2024 [id number] / [id number] / [id number] Procedures Procedure Name Priority Date/Time Associated Diagnosis Comments CARDIAC DEVICE CHECK - SCHEDULED - LOOP RECORDER (ILR) 12/12/2024 12:00 AM EDT Presence of other cardiac implants and grafts Cerebral infarction, unspecified CARDIAC DEVICE CHECK - SCHEDULED - LOOP RECORDER (ILR) 11/11/2024 12:00 AM EDT Presence of other cardiac implants and grafts Cerebral infarction, unspecified MICROALBUMIN / CREATININE URINE RATIO Routine 12/08/2023 9:53 AM EDT Obstructive sleep apnea syndrome HTN (hypertension), benign Hyperlipidemia associated with type 2 diabetes mellitus (HCC) Fatigue, unspecified type Paroxysmal atrial fibrillation (HCC) Vitamin D deficiency Vitamin B 12 deficiency Type 2 diabetes mellitus with hyperglycemia, without long-term current use of insulin (HCC) Prostate cancer screening Polypharmacy HEMOGLOBIN A1C Routine 12/08/2023 9:53 AM EDT HTN (hypertension), benign Hyperlipidemia associated with type 2 diabetes mellitus (HCC) HX HEPATITIS C ANTIBODY Routine 04/03/2021 1:19 AM EST from Last 3 Months or Most Recently Relevant to Health Maintenance Results * Scheduled Remote Loop Recorder (ILR) (12/12/2024 12:00 AM EDT) Only the most recent of2 resultswithin the time period is included. Pathologist [facility] Cardiac Device Summary Routine Remote ILR Summary Report (Cryptogenic Stroke) Current ECG: Sinus rhythm ~80 bpm Detections: (0) [facility] [place]: 0.2% Diagnostic data otherwise within normal limits. Normally functioning ILR. Reviewed by [facility]NI Cardiac Device Type LOOP RECORDER (ILR) [email or web address] OMNI Cardiac Device Video Editing Intern MDT [email or web address] OMNI Cardiac Device Alert Rank NONE PREPMD OMNI Anatomical Region Laterality Modality Other 12/12/2024 Narrative 12/14/2024 4:03 PM EDT Routine Remote ILR Summary Report (Cryptogenic Stroke) Current ECG: Sinus rhythm ~80 bpm Detections: (0) [facility] [place]: 0.2% Diagnostic data otherwise within normal limits. Normally functioning ILR. Reviewed by [employer] us Stephanie Villalta MD CV IMPLANTABLE CARDIAC STEFF CE PROCEDURES Final Result * Microalbumin / creatinine urine ratio (12/08/2023 9:53 AM EDT) Microalb, Ur <5.00 None Established mg/L LAB CHEMISTRY METHOD 12/08/2023 1:40 PM EDT [facility] Microalb/Crea t Ratio <9 0 - 30 Ratio LAB CHEMISTRY METHOD 12/08/2023 1:40 PM EDT [facility] Creatinine, Ur 53 None Established mg/dL LAB CHEMISTRY METHOD 12/08/2023 1:40 PM EDT [facility] Urine Urine specimen obtained by clean catch procedure / Unknown Non-blood Collection / Unknown 12/08/2023 9:53 AM EDT 12/08/2023 9:53 AM EDT America Marcum LAB URINE ORDERABLES Final Result [facility] [address] [place] [address], * (ABNORMAL) Hemoglobin A1c (12/08/2023 9:53 AM EDT) Hemoglobin A1C 8.9(H) <=5.6 % 12/08/2023 2:29 PM EDT [facility] Estimated Average Glucose 208.73 12/08/2023 2:29 PM EDT [facility] Blood Venous blood specimen / Unknown Venipuncture / Unknown 12/08/2023 9:53 AM EDT 12/08/2023 9:53 AM EDT [facility] - 12/08/2023 2:29 PM EDT Reference Range - Suggested Diagnosis <= 5.6% - Non-Diabetic 5.7 - 6.4% - Pre-Diabetic >= 6.5% - Diabetic America Marcum NP LAB BLOOD ORDERABLES Final Result [facility] [address] [place] [address], * HX Hepatitis C Antibody (04/03/2021 1:19 AM EST) HX HEPATITIS C ANTIBODY NUMERIC <0.02 0.00 - 0.80 ratio [facility] HX HEPATITIS C ANTIBODY NUMERIC Hepatitis C Virus Antibody Reference Indications: Less than 0.8 ....... Negative 0.8 - 0.9 ....... Indeterminate Greater than 0.9 ....... Positive In order to reduce the incidence of a false positive result, the CDC recommends that all s/co ratios between 1.0 and 10.9 be confirmed with additional RIBA or PCR testing. [facility] DATA CONVERSION LAB HX HEPATITIS C ANTIBODY Negative Negative [facility]VERSION [facility] Blood 04/03/2021 1:19 AM EST Linh DUMONT LAB BLOOD ORDERABLES Final Result [facility] [employer] DATA CONVERSION LAB from Last 3 Months or Most Recently Relevant to Health Maintenance Insurance MEDICARE [facility] MEDICARE SUPPLEMENT Care Teams Snuff Grinder Relationship Specialty Start Date End Date America Marcum NP [address] [place] [address] PCP - General Internal Medicine 08/20/22
--- OUTSIDE RECORDS SUMMARY | 2025-01-12 14:53 | XMS_ITS | Encounter Summary ---
Author Organization [facility] Address [address] [place] [address] Care Team Providers Care Director Of Pharmacy Name Role Phone America Marcum PLANER OPERATOR Primary Care Provider [phone] Reason for Visit * Reason Onset Date Comments Med Refill 10/21/2023 Encounter Details Date Type Department Care Team (Late st Contact Info) Description 10/21/2023 Telephone [facility] Internal Medicine - [address] [address] America Marcum NP [address] [place] [address] Med Refill Social History Tobacco Use [...] if not the patient? Best contact number(s)? [phone] Name of the medication and dosage if known:? zolpidem (Ambien) 10 mg tablet Are they out of the medication - yes/no?? Y Pharmacy name and phone number - if we are unable to select it within the telephone encounter from a list or if it is a new pharmacy? [facility] [place] [phone] Transfer Successful? Y or N N/A *Details to clarify the request:? documented in this encounter Plan of Treatment Not on file documented as of this encounter Visit Diagnoses Not on filedocumented in this encounter Care Teams Director Of Pharmacy Relationship Specialty Start Date End Date America Marcum NP [address] [place] [address] PCP - General Internal Medicine 08/20/22 documented as of this encounter
--- OUTSIDE RECORDS SUMMARY | 2025-01-12 14:53 | XMS_ITS | Encounter Summary ---
Author Organization [facility] Syste [facility] Address [address] [place] [address] Care Team Providers Care Rehabilitation Aide/Scheduler Name Role Phone Linh Cope Primary Care Provider America Lucia NP Primary Care Provider Encounter Details Date Type Department Care Team (Late st Contact Info) Description 05/09/2022 Orders Only [facility] Primary Care - [address], [address] [place] [address] Kathryn Orozco MA Social History [...] on filedocumented in this encounter Care Teams Rehabilitation Aide/Scheduler Relationship Specialty Start Date End Date Linh Cope PA PCP - General 09/11/21 08/19/22 America Marcum NP [address] [place] [address] PCP - General Internal Medicine 08/20/22 documented as of this encounter
[2025-01-12 16:33] LABS: Hematocrit 45.0 % (42.0-52.0); Hemoglobin 14.3 g/dL (14.0-18.0); Immature Granulocyte Percent A 0.5 % (0-0.5); Lymphocytes Absolute Auto 2.34 K/mm3 (0.9-3.2); Mean Corpuscular HGB Conc 31.8 g/dl (32-36); Mean Corpuscular Hemoglobin 28.0 pg (26-34); Mean Corpuscular Volume 88.1 fl (80-100); Nucleated Red Blood Cells Absolute Auto 0.000 K/mm3 (0.0-0.012); Nucleated Red Blood Cells Perc 0.0 % (0.0-0.2); Platelet Count Result 309 k/mm3 (150-375); Red Blood Count 5.11 M/mm3 (4.6-6.20); White Blood Count 5.6 K/mm3 (4.5-10.0)
[2025-01-12 16:48] LABS: Alanine Aminotransferase 19 U/L (6-50); Albumin Level 5.0 g/dL (3.5-5.1); Alkaline Phosphatase 49 U/L (38-126); Anion Gap 12 mmol/L (4-12); Aspartate Amino Transferase 28 U/L (17-59); Bilirubin,Total 0.6 mg/dL (0.2-1.3); Blood Urea Nitrogen 15 mg/dL (9-20); Calcium 10.2 mg/dL (8.4-10.2); Carbon Dioxide 23 mmol/L (22-30); Chloride 101 mmol/L (98-107); Cholesterol 155 mg/dL (0-200); Estimated Glomerular Filt Rate > 60; Glucose 203 mg/dL (65-110); HDL Direct 46 mg/dL; Hemoglobin A1C 11.5 % (<5.7); Potassium 4.2 mmol/L (3.4-5.0); Sodium 136 mmol/L (137-145); Total Protein 8.1 g/dL (6.3-8.2); Triglycerides 293 mg/dL (<150)
[2025-01-12 17:07] LABS: MALB Creatinine Ratio < 12.2 mg/g (0-30)
[2025-01-12 17:18] LABS: Thyroid Stimulating Hormone 2.530 uIU/mL (0.465-4.680)
== END 2025-01-12 14:21 | disposition home or self-care (01) ==
LOC: ANHGOSHLAB 14:21
PROVIDERS: PCP Nurse Practitioner Family; Visit Provider Nurse Practitioner Family
DX: D64.9 Anemia, unspecified (principal); I48.0 Paroxysmal atrial fibrillation; E11.9 Type 2 diabetes mellitus without complications; G47.00 Insomnia, unspecified; Z79.899 Other long term (current) drug therapy
CPT/HCPCS: 36415; 80053; 80061; 82043; 83036; 84443; 85025

== ENCOUNTER 2025-01-18 06:34 | Outpatient (CLI) | payer MEDICARE, SELFPAY ==
--- NOTE | ~2025-01-18 | CT_ITS ---
EXAMINATION: CT chest abdomen pelvis w con, 01/18/2025 6:45 CDT HISTORY: C80.1 - Malignant (primary) neoplasm, 40LB WEIGHTLOSS COMPARISON: Comparison 02/08/2017. TECHNIQUE: CT scan of the chest, abdomen and pelvis was performed with contrast Isovue 300, 92cc injected IV. One or more of the following dose reduction techniques were used: automated exposure control, adjustment of the mA and/or kV according to patient size, use of iterative reconstruction technique. Unless otherwise stated, incidental findings do not require dedicated follow up imaging FINDINGS: CT chest: No significant coronary calcification is present ([id number]) LUNGS: No tracheomalacia or bronchiectasis. Minimal emphysematous changes. Minimal pulmonary fibrotic changes. Scattered calcified granulomas. HEART AND PERICARDIUM: Within normal limits. AORTA: Normal caliber aorta. MEDIASTINUM: Unremarkable. THYROID: The thyroid is unremarkable. CT abdomen: LIVER: Minimal hepatic steatosis suspected. The main portal vein is patent. There is no intrahepatic biliary duct dilatation. SPLEEN: Unremarkable, no splenomegaly. KIDNEYS: Right Kidney: Unremarkable. No calculi. No hydronephrosis. Left Kidney: Unremarkable. No calculi. No hydronephrosis ADRENAL GLANDS: Unremarkable. PANCREAS: Moderate pancreatic atrophy. GALLBLADDER/BILIARY: The gallbladder is contracted. STOMACH AND ESOPHAGUS: The stomach is decompressed. BOWEL/MESENTERY: Moderate fecal content, moderate diverticulosis, diverticulitis or diverticulitis. Appendix not identified. Mesentery is normal. Small bowel normal. RETROPERITONEUM: Unremarkable AORTA/VASCULATURE: Normal caliber aorta. FREE FLUID OR FREE AIR: No free fluid.. CT pelvis: SOLID ORGANS/REPRODUCTIVE: The prostate is enlarged, correlate with PSA prostate ultrasound. BLADDER: The bladder is distended. LYMPHADENOPATHY: No lymphadenopathy. OSSEOUS STRUCTURES: No sclerotic or lytic lesions. Moderate degenerative changes in the spine. OVERLYING SOFT TISSUES: Small bilateral fat-containing inguinal hernia. IMPRESSION: 1. No evidence of metastatic disease. Incidental findings above Reviewed, dictated and finalized at location A.
== END 2025-01-18 06:35 | disposition home or self-care (01) ==
PROVIDERS: PCP Nurse Practitioner Family; Visit Provider Nurse Practitioner Family
DX: C80.1 Malignant (primary) neoplasm, unspecified (principal)
CPT/HCPCS: 71260; 74177; Q9967